=== PATIENT | female | born 1965 | race Caucasian/White ===

== ENCOUNTER → 2020-05-20 | Outpatient (CLI) | payer BC, OTHER ==
[~2020-05-20] MED LIST: CEFU250 PO; FEXPSEER; IBUP200; KETO.5OPSO OU; LORPSEER24 PO; PSEU30; RXCLIN PO; TRIAOIA
== END | disposition home or self-care (01) ==
LOC: LAB SHORT 11:24 → LAB EV 11:24
DX: R05 Cough (principal); Z20.828 Contact with and (suspected) exposure to other viral communicable diseases
CPT/HCPCS: U0003

== ENCOUNTER 2020-09-13 10:15 | Emergency (ER) | payer BC ==
[~2020-09-13] VITALS: Ht 149.9 cm; Wt 65.8 kg
== END 2020-09-13 12:15 | disposition home or self-care (01) ==
LOC: ER 10:15
DX: N81.4 Uterovaginal prolapse, unspecified (principal); Z88.1 Allergy status to other antibiotic agents; Z88.0 Allergy status to penicillin
CPT/HCPCS: 99283

== ENCOUNTER 2020-10-26 05:53 | Day surgery (SDC) | payer BC, OTHER ==
[~2020-10-26] VITALS: Ht 152.4 cm; Wt 69.3 kg
[~2020-10-26 05:53] MED LIST changes: +ATOR20 PO; +MULVITA PO; +ZESTORETIC 20-1 EAC1 PO
[2020-10-26] MEDS ORDERED: TYLENOL PM PO (06:38)
--- NOTE | 2020-10-26 06:52 | NUR ---
History, Chart, Medications and Allergies reviewed before start of procedure. Patient confirms NPO status and agrees with scheduled surgery. Penicillin removed from allergy list per patient request. She denies allergy to penicillin. Patient States Post-Procedure ride home has been arranged with her daughter.
--- NOTE | 2020-10-26 11:12 | NUR ---
ARRIVAL TO UNIT PT ARRIVED TO UNIT AT APPROX 0930. PT SLID TO BED FROM [facility]. PT DENIES PAIN AT THIS TIME, GABRIELLA PAD IN PLACE, NO DRAINAGE NOTED. MENDEZ IN PLACE PATENT AND DRAINING. PT GIVEN WATER, TOLERATING WELL, NO NAUSEA. PT HAS CALL LIGHT IN REACH AND ORIENTED TO USE. NO FURTHER NEEDS AT THIS TIME.
--- NOTE | 2020-10-26 16:34 | NUR ---
SHIFT SUMMARY PT [id number], PT HAS BEEN AMBULATING FREQUENTLY. NO WEAKNESS NOTED. PT DENIES ALL PAIN. WILL PULL CATHETER PER ORDERS AT 5. PT EAGER TO HAVE PULLED. PLAN IS TO WAIT FOR PATIENT TO VOID POST MENDEZ REMOVAL AND DISCHARGE HOME TODAY. MINIMAL SANGUINOUS DRAINAGE DURING SHIFT TO GABRIELLA PAD. PT TOLERATING PO WELL, NO NAUSEA TODAY.
[2020-10-26] MEDS ORDERED: PROM25 PO (19:36)
--- NOTE | 2020-10-26 19:48 | NUR ---
DC HOME PT TOLERATING PAIN, TOLERATING PO, NO N/V, VOIDING WELL. REVIEWED DC INSTRUCTIONS WITH PT AND SPOUSE. IV DC'D CATH INTACT. PT DC'D HOME, AMBULATED OFF UNIT PER REQUEST WITH SPOUSE. BELONGINGS AND INSTRUCTIONS IN HAND.
== END 2020-10-26 19:50 | disposition home or self-care (01) ==
LOC: ORSCMMR 05:53 → ORD 07:30 → SURS 09:22 → ORSCMMR 19:50
PROVIDERS: Obstetrics & Gynecology
PROC: 0TJB8ZZ Inspection of Bladder, Via Natural or Artificial Opening Endoscopic (ICD-10-PCS; principal; 2020-10-26 07:30)
PROC: 0JQC0ZZ Repair Pelvic Region Subcutaneous Tissue and Fascia, Open Approach (ICD-10-PCS; principal; 2020-10-26 07:30)
DX: N81.10 Cystocele, unspecified (principal); I10 Essential (primary) hypertension; Z79.899 Other long term (current) drug therapy
CPT/HCPCS: A9270; J0171; J1100; J1885; J2250; J2370; J2405; J2550; J2704; J3010; J7120